=== PATIENT | male | born 1935 | race Two or more races ===

== ENCOUNTER 2024-09-14 15:48 | Outpatient (CLI) | payer OTHER | END 2024-09-14 16:02 | disposition home or self-care (01) | LOC: LAB 15:48 | PROVIDERS: ATTEND Urology | DX: R97.20 Elevated prostate specific antigen [PSA] (principal) ==

== ENCOUNTER 2024-09-30 07:02 | Outpatient (CLI) | payer OTHER | END 2024-09-30 07:07 | disposition home or self-care (01) | LOC: SONOGRAMA 07:02 | PROVIDERS: ATTEND Urology | DX: R97.20 Elevated prostate specific antigen [PSA] (principal) ==